=== PATIENT | female | born 1965 | race Two or more races ===

== ENCOUNTER 2018-01-06 20:30 | Inpatient (IN) | payer BC ==
[~2018-01-06] VITALS: Ht 157.5 cm; Wt 54.0 kg
[2018-01-06 12:00] VITALS: BP 92/48
--- NOTE | 2018-01-06 19:55 | NUR ---
admission notes: received report from hugo rn, pt direct admit from [facility]. pt brought to the unit via gurney accompanied by paramedics. pt is a/o x4 on ra, denies any chest pain or sob, or any discomfort. pt stated all her symptoms resolved in [place] but her left eye feels like there's vicks or bengay inside the socket. oriented pt to unit policy and use of call light. vs taken and recorded. placed on tele monitoring. stroke assessment performed. inventory of belonging performed by advertising sales consultant. all paper works from [place] placed in chart. skin assessment performed no skin issues noted. pt is ambulatory. safety precautions for fall initiated, call light in reach, will continue monitoring pt.
[2018-01-06 20:00] VITALS: BP 126/86
--- NOTE | 2018-01-06 20:30 | NUR ---
RN NOTES: NO DEFICITS NOTED, NO ARM OR LEG WEAKNESS NOTED, NO SLURRED SPEECH,PT DENIES ANY PAIN, CHEST PAIN HEAD ACHE OR DIZZINESS NOR LIGHT HEADEDNESS. STROKE ASSESSMENT COMPLETED AND SCORE OBTAINED IS 0.
--- NOTE | 2018-01-06 21:09 | NUR ---
CALL EPIC EXCHANGE AND TALK TO INSURANCE PRODUCER MD MADE HIM AWARE THAT THE PT ON THE UNIT PER MD WILL PUT IN ADMITTING ORDERS AND WILL BE HERE SHORTLY
[2018-01-06 21:45] VITALS: BP 126/86
[2018-01-06 21:48] LABS: BASOPHILS % (AUTO) 0.6 % (0.0-2.0); EOSINOPHILS % (AUTO) 2.2 % (0.0-6.0); HEMATOCRIT 41 % (33-45); HEMOGLOBIN 13.9 g/dL (11.5-14.8); LYMPHOCYTES # (AUTO) 2.6 /CMM (0.8-4.8); LYMPHOCYTES % (AUTO) 46.6 % (20.0-44.0); MEAN CORPUSCULAR HGB CONC 34 g/dl (31.0-36.0); MEAN CORPUSCULAR VOLUME 91 fL (82-100); MONOCYTES # (AUTO) 0.3 /CMM (0.1-1.30); MONOCYTES % (AUTO) 6.3 % (2.0-12.0); NEUTROPHILS # (AUTO) 2.4 /CMM (1.8-8.9); NEUTROPHILS % (AUTO) 44.3 % (43.0-81.0); PLATELET COUNT (AUTO) 312 /CMM (150-450); RDW COEFFICIENT OF VARIATION 13.1 (11.5-15.0); RED BLOOD CELL COUNT(AUTO) 4.48 MIL/uL (4.0-5.2); WHITE BLOOD COUNT (AUTO) 5.5 K/uL (4.3-11.0)
[2018-01-06] MEDS: BLOOD SUGAR DIAGNOSTIC 1 EACH STRIP IN SCH (22:01)
[2018-01-06 22:03] LABS: CARBON DIOXIDE 30 mmol/L (21-32); CHLORIDE 105 mmol/L (98-107); CREATININE 0.7 mg/dL (0.6-1.3); GLUCOSE 94 mg/dL (74-106); POTASSIUM 4.1 mmol/L (3.5-5.1); SODIUM SERUM 140 mmol/L (136-145); UREA NITROGEN, BLOOD 20 mg/dL (7-18)
--- NOTE | 2018-01-06 22:03 | NUR ---
TECH AT BEDSIDE PERFORMING ECHO AND CAROTID DUPLEX. ONCE FINISH WILL DO SWALLOW SCREEN
[2018-01-06 22:05] LABS: INR 0.93 (0.87-1.13)
[2018-01-06 22:09] LABS: TROPONIN I < 0.017 ng/mL (0.00-0.056)
[2018-01-06 22:15] LABS: ALANINE AMINOTRANSFERASE 23 U/L (12-78); ALKALINE PHOSPHATASE 43 U/L (46-116); ASPARTATE AMINOTRANSFERASE 16 U/L (15-37); B-TYPE NATRIURETIC PEPTIDE 56 PG/ML (0-125); BILIRUBIN,TOTAL 0.4 mg/dL (0.2-1.0); CHOLESTEROL 257 mg/dL (<200); HDL CHOLESTEROL 103 mg/dL (40-60); LDL 138 mg/dL (0-99); THYROID STIMULATING HORMONE 2.075 uIU/mL (0.358-3.74); TOTAL PROTEIN, SERUM 7.6 g/dL (6.4-8.2); TRIGLYCERIDES 36 mg/dL (30-150)
--- NOTE | 2018-01-06 22:35 | NUR ---
RN NOTES: KAT MIRAMONTES CURRENTLY IN THE UNIT, INFORMED THAT PT PASSED SWALLOW TEST/EVAL, PER CONCRETE ENGINEERING TECHNICIAN OKAY TO PUT ON [id number] DIET NOW
--- NOTE | 2018-01-06 22:47 | NUR ---
EKG DONE AT BEDSIDE
--- NOTE | 2018-01-06 22:47 | NUR ---
KAT MIRAMONTES CAME TO SEE A PT FOR ASSESSMENT AND H&P, DISCUSSED PLAN OF CARE
[2018-01-06] MEDS ORDERED: ENOXAPARIN SODIUM 40 MG/0.4 ML DISP.SYRIN SQ SCH (23:00)
[2018-01-06] MEDS ORDERED: TEMAZEPAM 7.5 MG CAPSULE PO PRN (23:00)
--- NOTE | 2018-01-06 23:14 | NUR ---
RN NOTES: RECEIVED CALL FROM FRONT OFFICE HELP LOOM CHANGER RELAYED RESULT OF CT SCAN FROM [place], ALSO MADE AWARE OF RESULT OF STAT EKG, RESULT IS SINUS BRADYCARDIA WITH SINUS ARRHYTHMIA HR 56, ALSO MADE AWARE THAT ON TELE MONITORING SHOWS SINUS WINSOME HR 56, PT DENIES ANY DIZZINESS OR LIGHT HEADEDNESS, DENIES HEAD ACHE, PER LOOM CHANGER HE WILL ORDER FLUIDS, AND MAGNESIUM LEVEL, ALSO INFORMED THAT HE ORDERED 2 BLOOD SUGAR CHECK, ONE IS ACHS AND THE OTHER ONE IS Q6HR IF NPO, PER LOOM CHANGER DISCONTINUE THE Q6HR FOR NPO, AND LEAVE ACCU CHECK ACHS ONLY
[2018-01-06] MEDS ORDERED: IV NS 0.9% 1,000 ML IV PRN (23:30)
[2018-01-07] VITALS (9 sets, daily range): BP systolic 83–92; BP diastolic 44–55
[2018-01-07] MEDS ORDERED: BLOOD SUGAR DIAGNOSTIC 1 EACH STRIP IN SCH
--- NOTE | 2018-01-07 00:14 | NUR ---
prn restoril: pt requested sleeping pill prn restoril administered at this time, per server security administrator okay to give
[2018-01-07 01:32] LABS: APPEARANCE,URINE CLEAR (CLEAR); BILIRUBIN,URINE NEGATIVE (NEGATIVE); BLOOD, URINE 2+ Ery/uL (NEGATIVE); COLOR,URINE YELLOW (YELLOW); KETONES,URINE NEGATIVE (NEGATIVE); LEUKOCYTE ESTERASE ,URINE NEGATIVE (NEGATIVE); NITRITE, URINE NEGATIVE (NEGATIVE); PROTEIN,URINE NEGATIVE (NEGATIVE); UGLUCOSE NEGATIVE (NEGATIVE); UROBILINOGEN,URINE 0.2 EU/dL (0.2)
[2018-01-07 01:40] LABS: BACTERIA,URINE None seen /HPF (None Seen); WBC,URINE 0-2 /HPF (0-3)
[2018-01-07 01:41] LABS: SQUAMOUS EPITHELIAL CELL,UR Moderate /HPF (None Seen)
--- NOTE | 2018-01-07 04:00 | NUR ---
RN NOTES: PT'S BP NOTED TO BE ON LOW SIDE, PER PT, SHE IS NORMALLY HYPOTENSIVE, PT DENIES ANY PAIN DIZZINESS OR LIGHT HEADEDNESS, ELEVATED PT'S LEG, PT IS RECEIVING IVF AT 75ML/HR, WILL CONTINUE MONITORING.
[2018-01-07 04:31] LABS: BASOPHILS % (AUTO) 0.7 % (0.0-2.0); EOSINOPHILS % (AUTO) 2.8 % (0.0-6.0); HEMATOCRIT 36 % (33-45); HEMOGLOBIN 12.3 g/dL (11.5-14.8); LYMPHOCYTES # (AUTO) 2.5 /CMM (0.8-4.8); LYMPHOCYTES % (AUTO) 49.5 % (20.0-44.0); MEAN CORPUSCULAR HGB CONC 34 g/dl (31.0-36.0); MEAN CORPUSCULAR VOLUME 91 fL (82-100); MONOCYTES # (AUTO) 0.5 /CMM (0.1-1.30); MONOCYTES % (AUTO) 9.8 % (2.0-12.0); NEUTROPHILS # (AUTO) 1.9 /CMM (1.8-8.9); NEUTROPHILS % (AUTO) 37.2 % (43.0-81.0); PLATELET COUNT (AUTO) 287 /CMM (150-450); RDW COEFFICIENT OF VARIATION 13.1 (11.5-15.0); RED BLOOD CELL COUNT(AUTO) 3.96 MIL/uL (4.0-5.2); WHITE BLOOD COUNT (AUTO) 5.1 K/uL (4.3-11.0)
[2018-01-07 04:46] LABS: CALCIUM, SERUM 8.3 mg/dL (8.5-10.1); CREATININE 0.8 mg/dL (0.6-1.3); MAGNESIUM 1.8 mg/dL (1.8-2.4)
--- NOTE | 2018-01-07 04:55 | NUR ---
RN NOTES: PAGED EPIC CLAY MILLER AWAITING FOR CALL BACK REGARDING PT'S LOW BP
--- NOTE | 2018-01-07 05:30 | NUR ---
RN NOTES: TALKED TO UNDER TRIMMER ROAD CREW MEMBER, RELAYED RESULT OF VS, NO FURTHER ORDER RECEIVED FROM ROAD CREW MEMBER, STATED ITS OKAY, PT ASYMPTOMATIC
[2018-01-07] MEDS: BLOOD SUGAR DIAGNOSTIC 1 EACH STRIP IN SCH ×3 (05:44→17:30)
--- NOTE | 2018-01-07 06:51 | NUR ---
RN CLOSING NOTES PATIENT RELATIONS DIRECTOR CLOSING NOTES : PT IN BED A/O X 4 ON TELE , SYNUS WINSOME TO SYNUS RHYTHM HR RANGING 56-62. WITH BP ON LOW 80'S, MD AWARE. PT ASYMPTOMATIC. PT IV ACCESS REMAINS PATENT AND FLUSHING WELL, RECEIVING NS 75ML/HR. DENIES PAIN OR DISTRESS .NEURO CONSULT TODAY.NEEDS ATTENDED. BED IN LOW AND LOCKED POSITION, CALL LIGHT WITHIN EASY REACH. WILL ENDORSE TO DAY RN FOR CONTINUITY OF CARE.
--- NOTE | 2018-01-07 07:21 | NUR ---
RN NOTES PT IS LAYING DOWN IN BED, SLEEPING. PT ON RA, RESPIRATIONS ARE EVEN AND UNLABORED. IV ON RAC INTACT AND RUNNING NS @ 75ML/HR. NO SIGNS OF DISTRESS NOTED. SAFETY MEASURES ARE IN PLACE, CALL LIGHT IS IN REACH. WILL CONTINUE TO MONITOR.
[2018-01-07] MEDS ORDERED: PANTOPRAZOLE 40 MG TABLET.DR PO SCH (07:30)
[2018-01-07] MEDS ORDERED: ASPIRIN 81 MG TAB.CHEW PO SCH (09:00)
[2018-01-07] MEDS ORDERED: ASPI-1169 PO (17:28)
[2018-01-07] MEDS ORDERED: ATOR10TA PO (17:28)
--- NOTE | 2018-01-07 18:12 | NUR ---
RN NOTES PT WAS DISCHARGED HOME IN STABLE CONDITION VIA PRIVATE CARE. IV AND ID BAND WERE REMOVED. BELONGINGS WERE RETURNED TO PT. EDUCATION WAS PROVIDED FOR STROKE RISKS AND SIGNS AND SYMPTOMS TO LOOK FOR. PT PROVIDED WITH DISCHARGE INSTRUCTIONS AND TOLD TO FOLLOW UP WITH PCP WITHIN 1-2 WEEKS. PT VERBALIZED UNDERSTANDING AND STATED SHE ALREADY MADE THE APPOINTMENT WITH HER DOCTOR. PRESCRIPTION WAS GIVEN TO PT TO HAVE FILLED, PT VERBALIZED UNDERSTANDING AND STATED SHE WOULD TAKE IT TO HER PHARMACY.
[2018-01-07] MEDS ORDERED: ENOXAPARIN SODIUM 40 MG/0.4 ML DISP.SYRIN SQ SCH (21:00)
[2018-01-07] MEDS ORDERED: ATORVASTATIN 10 MG TABLET PO SCH (22:00)
== END 2018-01-07 18:10 | disposition home or self-care (01) | DRG 882 ==
LOC: TELE 20:30 → MED 01-07 08:29
PROVIDERS: ADMIT Registered Nurse; ATTEND Registered Nurse
DX: F43.9 Reaction to severe stress, unspecified (principal); N17.0 Acute kidney failure with tubular necrosis; E78.5 Hyperlipidemia, unspecified; Z82.3 Family history of stroke; Z88.0 Allergy status to penicillin; Z88.8 Allergy status to other drugs, medicaments and biological substances; E86.0 Dehydration
CPT/HCPCS: 36415; 70551-TC; 80048-TC; 80053-TC; 80061-TC; 80305; 81000-TC; 82962-TC; 83735-TC; 83880; 84443-TC; 84484-TC; 85025-TC; 85652-TC; 85730-TC; 87081-TC; 92611-TC; 93307-TC; 93880-TC; J1650; J7030